=== PATIENT | female | born 1980 | race Caucasian/White ===

== ENCOUNTER 2019-06-23 02:27 | Emergency (ER) | payer SELFPAY ==
[~2019-06-23] VITALS: Ht 167.6 cm; Wt 68.0 kg
[2019-06-23 04:16] LABS: Basophils # (auto) 0.1 10 ^3/uL (0-0.2); Basophils % (auto) 0.7 % (0.0-2.0); Eosinophils # (auto) 0 10 ^3/uL (0-0.8); Eosinophils % (auto) 0.1 % (0.0-7.0); Hematocrit 36.1 % (36.0-46.0); Hemoglobin 12.2 g/dL (12.2-16.2); Lymphocytes % (auto) 16.9 % (10.0-50.0); Mean Corpuscular Hemoglobin 30.7 pg (28.0-32.0); Mean Corpuscular Hgb Conc. 33.9 g/dL (32.0-36.0); Mean Corpuscular Volume 90.6 fL (80.0-100.0); Monocytes # (auto) 0.9 10 ^3/uL (0-1.3); Monocytes % (auto) 7.2 % (0.0-12.0); Neutrophils # (auto) 8.9 10 ^3/uL (1.6-8.6); Neutrophils % (auto) 75.1 % (37.0-80.0); Platelet Count (auto) 297 10^3/uL (140-450); Red Blood Cells 3.98 10^6/uL (4.0-5.20); Red Cell Distribution Width 13.4 % (11.8-14.3); White Blood Cell 11.9 10^3/uL (4.4-10.8)
[2019-06-23 04:37] LABS: Albumin 3.6 g/dL (3.4-5.0); Anion Gap 10 (5-15); Blood Alcohol < 3.0 mg/dL (0-5); Blood Urea Nitrogen 23 mg/dL (7-18); Calcium 8.8 mg/dL (8.5-10.1); Carbon Dioxide 25 mmol/L (21-32); Chloride 101 mmol/L (98-107); Glucose 114 mg/dL (74-106); Magnesium 2.1 mg/dL (1.6-2.6); Potassium 3.4 mmol/L (3.5-5.1); Sodium 136 mmol/L (136-145)
[2019-06-23 04:42] LABS: Alanine Aminotransferase 113 U/L (13-56); Alkaline Phosphatase 420 U/L (45-117); Aspartate Aminotransferase 77 U/L (15-37); BUN/Creatinine Ratio 31.5; Bilirubin, Total 2.1 mg/dL (0.2-1.0); GFR African American 115 mL/min; GFR Non-African American 95 mL/min; Total Protein 7.6 g/dL (6.4-8.2)
[2019-06-23 06:45] LABS: Urine Bacteria FEW /hpf (None Seen); Urine Blood Negative /uL (Negative); Urine Specific Gravity 1.022 (1.001-1.035); Urine WBC 24 /hpf (0 - 5)
[2019-06-23 07:04] LABS: Alcohol, Urine < 3.0 mg/dL (0-5); Amphetamine Screen, Urine POSITIVE (NEGATIVE); Barbiturate Scree,Urine NEGATIVE (NEGATIVE); Benzodiazephine Screen, Urine NEGATIVE (NEGATIVE); Cannabinoid Screen, Urine NEGATIVE (NEGATIVE); Cocaine Screen, Urine NEGATIVE (NEGATIVE); Phencyclidine Screen, Urine NEGATIVE (NEGATIVE)
[2019-06-23 07:12] LABS: Opiate Scree,Urine NEGATIVE (NEGATIVE)
[2019-06-23] MEDS ORDERED: cefTRIAXone W LIDOCAINE 1 GM IM IM ONE (07:15)
[2019-06-23] MEDS ORDERED: ASPirin 81 mg TAB PO ONE (07:15)
[2019-06-23] MEDS ORDERED: KETOROLAC TROMETH 60MG/2ML VIAL IM ONE (07:15)
[2019-06-23 11:16] VITALS: BP 105/65
== END 2019-06-23 11:19 | disposition home or self-care (01) ==
LOC: ER 02:31
DX: R07.89 Other chest pain (principal); N39.0 Urinary tract infection, site not specified; N20.0 Calculus of kidney; F17.210 Nicotine dependence, cigarettes, uncomplicated; Z90.710 Acquired absence of both cervix and uterus; Z88.6 Allergy status to analgesic agent
CPT/HCPCS: 36415; 71045; 74176; 80053; 80307; 80320; 81001; 83735; 83880; 84484; 85025; 93005; 96372; 99285; J0696; J1885